=== PATIENT | female | born 1940 | race Caucasian/White ===

== ENCOUNTER 2022-10-17 01:00 | Emergency (ER) | payer MEDICARE, OTHER ==
[2022-10-17] MEDS ORDERED: Adacel Vial IM ONE (02:01)
--- NOTE | 2022-10-17 08:01 | XRAY ---
Indication: Pain following injury. Comparison: None 3 view right hand demonstrates mildly angulated fracture base 5th proximal phalanx with soft tissue swelling. Fracture line extends articular surface. Elsewhere osteopenia. No other bony, articular, or soft tissue abnormalities.
--- NOTE | 2022-10-17 16:59 | XRAY ---
Indication: Pain following injury. Comparison: None Portable chest inflated and clear. Heart not enlarged. Small hiatal hernia. Bony thorax intact with osteopenia, mild degenerative changes, and small left humeral neck enchondroma. Impression: Nonacute chest with chronic features.
== END 2022-10-17 05:30 | disposition home or self-care (01) ==
LOC: ED 01:00
DX: S62.616A Displaced fracture of proximal phalanx of right little finger, initial encounter for closed fracture (principal); S01.01XA Laceration without foreign body of scalp, initial encounter; S50.812A Abrasion of left forearm, initial encounter; W20.8XXA Other cause of strike by thrown, projected or falling object, initial encounter; X37.1XXA Tornado, initial encounter; Y92.008 Other place in unspecified non-institutional (private) residence as the place of occurrence of the external cause
CPT/HCPCS: 71045; 73130; 90471; 90715; 99285